=== PATIENT | male | born 1940 | race Caucasian/White ===

== ENCOUNTER → 2018-03-30 | Outpatient (CLI) | payer MEDICARE ==
[2018-03-30 16:15] LABS: CALCIUM 9.3 mg/dL (8.4-10.2); CREATININE, serum 0.95 mg/dL (0.66-1.25); POTASSIUM 4.5 mmol/L (3.4-5.0)
== END ==
LOC: COL.LAB 10:26
PROVIDERS: Family Medicine
DX: I50.42 Chronic combined systolic (congestive) and diastolic (congestive) heart failure (principal)

== ENCOUNTER → 2018-04-12 | Outpatient (CLI) | payer MEDICARE ==
[2018-04-12 15:41] LABS: CREATININE, serum 0.88 mg/dL (0.66-1.25)
== END ==
LOC: COL.LAB 14:32
PROVIDERS: Family Medicine
DX: I50.42 Chronic combined systolic (congestive) and diastolic (congestive) heart failure (principal)

== ENCOUNTER 2018-04-25 14:34 | Outpatient (RCR) | payer MEDICARE, OTHER | END 2018-04-26 | disposition home or self-care (01) | LOC: COL.CR | DX: Z48.812 Encounter for surgical aftercare following surgery on the circulatory system (principal); Z95.5 Presence of coronary angioplasty implant and graft; I25.10 Atherosclerotic heart disease of native coronary artery without angina pectoris; I25.83 Coronary atherosclerosis due to lipid rich plaque ==

== ENCOUNTER 2018-06-04 11:10 | Outpatient (RCR) | payer MEDICARE | END 2018-06-15 09:54 | disposition home or self-care (01) | LOC: COL.CR 11:10 | DX: Z48.812 Encounter for surgical aftercare following surgery on the circulatory system (principal); Z95.5 Presence of coronary angioplasty implant and graft; I25.10 Atherosclerotic heart disease of native coronary artery without angina pectoris; I25.83 Coronary atherosclerosis due to lipid rich plaque ==

== ENCOUNTER 2018-08-31 13:56 | Outpatient (RCR) | payer SELFPAY | END 2018-09-02 | disposition home or self-care (01) | LOC: COL.CR | DX: Z02.89 Encounter for other administrative examinations (principal) ==

== ENCOUNTER 2018-11-16 14:25 | Outpatient (RCR) | payer SELFPAY | END 2018-12-04 | disposition home or self-care (01) | LOC: COL.CR | DX: Z02.89 Encounter for other administrative examinations (principal) ==

== ENCOUNTER 2019-01-14 12:01 | Emergency (ER) | payer MEDICARE, MEDICAID ==
[~2019-01-14] VITALS: Ht 175.3 cm; Wt 81.8 kg
[2019-01-14 12:06] VITALS: TEMP 97.2
[2019-01-14] MEDS ORDERED: LIPITOR 40MG TA40 MG PO (12:28)
[2019-01-14] MEDS ORDERED: ENTRESTO 49 MG1 EACH PO (12:29)
[2019-01-14] MEDS ORDERED: TOPROL XL 50MG50 MG PO (12:29)
[2019-01-14 12:53] LABS: BASO % 0.5 % (0.0-2.0); EOS # 0.3 (0.0-0.7); EOS % 5.2 % (0-4.0); GRAN # 3.7 (1.4-6.5); GRAN % 60.3 % (42.2-75.2); HEMATOCRIT 46.3 % (42.0-52.0); HEMOGLOBIN 15.8 g/dl (13.5-18.0); LYMPH # 1.2 (1.2-3.4); LYMPH % 19.1 % (20.0-51.0); MEAN CELL VOLUME 89 fl (80.0-100.0); MEAN CORPUSCULAR HEMOGLOBIN 30 pg (27.0-31.0); MEAN CORPUSCULAR HGB CONC 34 g/dl (33.0-37.0); MEAN PLATELET VOLUME 10.9 fl (7.4-10.4); MONO # 0.9 (0.1-0.6); MONO % 14.4 % (1.7-9.3); PLATELET COUNT 148 K/mm3 (130-400); RED BLOOD COUNT 5.21 M/mm3 (4.20-5.60); REDCELL DISTRIBUTION WIDTH-CV 13.4 % (11.5-14.5)
[2019-01-14 13:00] LABS: CALCIUM 8.9 mg/dL (8.4-10.2); CREATININE, serum 0.98 (0.66-1.25); POTASSIUM 4.1 mmol/L (3.4-5.0); TOTAL PROTEIN 7.2 gm/dL (6.4-8.2)
[2019-01-14 13:11] LABS: TROPONIN-I 0.013 ng/mL (0.000-0.035)
[2019-01-14] MEDS ORDERED: ZITHROMAX 250M250 MG PO (13:54)
[2019-01-14] MEDS ORDERED: PROAIR HFA0.09 MG/AC IH (14:31)
[2019-01-14 14:40] VITALS: BP 161/97; PULSE 74
== END 2019-01-14 14:40 | disposition home or self-care (01) ==
LOC: COL.ER 12:01
PROVIDERS: Emergency Medicine
DX: J20.9 Acute bronchitis, unspecified (principal)

== ENCOUNTER 2019-04-26 14:30 | Outpatient (RCR) | payer MEDICARE, MEDICAID ==
[~2019-04-26 14:30] MED LIST: ENTRESTO 49 MG1 EACH PO; LIPITOR 40MG TA40 MG PO; PROAIR HFA0.09 MG/AC IH; TOPROL XL 50MG50 MG PO; ZITHROMAX 250M250 MG PO
== END 2019-07-25 | disposition home or self-care (01) ==
LOC: COL.CR
DX: Z02.89 Encounter for other administrative examinations (principal)

== ENCOUNTER 2022-06-14 14:20 | Emergency (ER) | payer MEDICARE ==
[~2022-06-14] VITALS: Ht 175.3 cm; Wt 81.8 kg
[2022-06-14 14:28] VITALS: TEMP 97.8
[2022-06-14 16:13] LABS: COLLECTION METHOD CATHETER
[2022-06-14 16:21] LABS: URINE APPEARANCE Clear (CLEAR/HAZY); URINE COLOR Yellow (YELLOW)
[2022-06-14 16:22] LABS: PH 5.5 (5.0-8.5); URINE BLOOD 3+ (NEGATIVE); URINE GLUCOSE Negative (NEGATIVE); URINE KETONE Negative (NEGATIVE); URINE NITRATE Negative (NEGATIVE); URINE PROTEIN(semi-quant) Negative (NEGATIVE); URINE UROBILINOGEN 0.2 E.U/dL (0.2-1.0)
[2022-06-14 16:23] VITALS: BP 167/98; PULSE 88
[2022-06-14 16:25] LABS: MUCOUS Present (NOT PRESENT); SQUAMOUS EPITHELIAL None Seen /hpf (0-10); URINE BACTERIA None Seen /hpf (NONE SEEN); URINE RBC >50 /hpf (0-2)
== END 2022-06-14 16:24 | disposition home or self-care (01) ==
LOC: COL.ER 14:20
PROVIDERS: Family Medicine
DX: R33.9 Retention of urine, unspecified (principal); Z28.310 Unvaccinated for COVID-19

== ENCOUNTER 2022-06-16 08:15 | Emergency (ER) | payer MEDICARE ==
[~2022-06-16] VITALS: Ht 175.3 cm; Wt 81.8 kg
[2022-06-16 09:09] LABS: COLLECTION METHOD CATHETER
[2022-06-16 09:17] LABS: MUCOUS Present (NOT PRESENT); SQUAMOUS EPITHELIAL 0-2 /hpf (0-10); URINE BACTERIA Rare /hpf (NONE SEEN); URINE RBC 20-50 /hpf (0-2)
[2022-06-16 09:18] LABS: PH 5.5 (5-8); URINE APPEARANCE Clear (CLEAR/HAZY); URINE BLOOD 3+ (NEGATIVE); URINE COLOR Yellow (YELLOW); URINE GLUCOSE Negative (NEGATIVE); URINE KETONE Negative (NEGATIVE); URINE NITRATE Negative (NEGATIVE); URINE PROTEIN(semi-quant) 1+ (NEGATIVE); URINE UROBILINOGEN 0.2 (NEGATIVE)
[2022-06-16] MEDS ORDERED: FLOMAX 0.40.4 MG/CAP PO (09:59)
[2022-06-16 10:26] VITALS: BP 167/101; PULSE 71; TEMP 97.8
== END 2022-06-16 10:26 | disposition home or self-care (01) ==
LOC: COL.ER 08:15
PROVIDERS: Emergency Medicine
DX: R33.9 Retention of urine, unspecified (principal); Z28.310 Unvaccinated for COVID-19

== ENCOUNTER 2022-10-17 10:30 | Outpatient (RCR) | payer MEDICARE ==
[~2022-10-17 10:30] MED LIST changes: +FLOMAX 0.40.4 MG/CAP PO
== END 2022-10-18 | disposition home or self-care (01) ==
LOC: WSPT
DX: R26.81 Unsteadiness on feet (principal)

== ENCOUNTER 2022-10-24 08:32 | Emergency (ER) | payer MEDICARE ==
[~2022-10-24] VITALS: Ht 175.3 cm; Wt 81.8 kg
[2022-10-24 08:41] VITALS: TEMP 97.7
[2022-10-24 09:51] VITALS: BP 179/105; PULSE 74
== END 2022-10-24 09:51 | disposition home or self-care (01) ==
LOC: COL.ER 08:32
DX: T83.098A Other mechanical complication of other urinary catheter, initial encounter (principal); Y73.8 Miscellaneous gastroenterology and urology devices associated with adverse incidents, not elsewhere classified; Z28.310 Unvaccinated for COVID-19

== ENCOUNTER 2022-12-14 00:12 | Emergency (ER) | payer MEDICARE, MEDICAID ==
[~2022-12-14] VITALS: Ht 175.3 cm; Wt 80.5 kg
[2022-12-14 00:15] VITALS: TEMP 98.5
[2022-12-14 00:57] LABS: COLLECTION METHOD IN
[2022-12-14 01:27] LABS: MUCOUS Present (NOT PRESENT); URINE BACTERIA Moderate /hpf (NONE SEEN); URINE RBC >50 /hpf (0-2)
[2022-12-14 01:28] LABS: PH 6.5 (5.0-8.5); URINE APPEARANCE Turbid (CLEAR/HAZY); URINE BLOOD 3+ (NEGATIVE); URINE COLOR Red (YELLOW); URINE GLUCOSE Negative (NEGATIVE); URINE KETONE Negative (NEGATIVE); URINE NITRATE Positive (NEGATIVE); URINE PROTEIN(semi-quant) 3+ (NEGATIVE)
[2022-12-14] MEDS ORDERED: CIPRO 500MG TA500 MG PO (01:53)
[2022-12-14 02:09] VITALS: BP 127/80; PULSE 77
== END 2022-12-14 02:09 | disposition home or self-care (01) ==
LOC: COL.ER 00:12
PROVIDERS: Emergency Medicine
DX: T83.038A Leakage of other urinary catheter, initial encounter (principal); N39.0 Urinary tract infection, site not specified; Z28.310 Unvaccinated for COVID-19

== ENCOUNTER 2023-01-14 09:22 | Emergency (ER) | payer MEDICARE, MEDICAID ==
[~2023-01-14] VITALS: Ht 175.3 cm; Wt 81.8 kg
[~2023-01-14 09:22] MED LIST changes: +CIPRO 500MG TA500 MG PO
[2023-01-14 10:27] LABS: COLLECTION METHOD IN
[2023-01-14 11:01] LABS: BUDDING YEAST Present (NOT PRESENT); MUCOUS Present (NOT PRESENT); SQUAMOUS EPITHELIAL 0-2 /hpf (0-10); URINE BACTERIA Rare /hpf (NONE SEEN); URINE RBC 20-50 /hpf (0-2)
[2023-01-14 11:02] LABS: URINE APPEARANCE Hazy (CLEAR/HAZY); URINE COLOR Yellow (YELLOW)
[2023-01-14 11:03] LABS: URINE BLOOD 2+ (NEGATIVE); URINE GLUCOSE Negative (NEGATIVE); URINE KETONE Negative (NEGATIVE); URINE NITRATE Negative (NEGATIVE); URINE PROTEIN(semi-quant) 1+ (NEGATIVE); URINE UROBILINOGEN 0.2 E.U/dL (0.2-1.0)
[2023-01-14] MEDS ORDERED: CEPHALEXIN500 M1 PO (11:06)
[2023-01-14 11:42] VITALS: BP 179/114; PULSE 70; TEMP 97.9
== END 2023-01-14 11:19 | disposition home or self-care (01) ==
LOC: COL.ER 09:22
PROVIDERS: Emergency Medicine
DX: T83.038A Leakage of other urinary catheter, initial encounter (principal); N39.0 Urinary tract infection, site not specified; Z28.310 Unvaccinated for COVID-19; Z79.82 Long term (current) use of aspirin

== ENCOUNTER 2023-06-29 16:50 | Emergency (ER) | payer MEDICARE, MEDICAID ==
[~2023-06-29] VITALS: Ht 175.3 cm; Wt 81.8 kg
[~2023-06-29 16:50] MED LIST changes: +AMOXICILLIN 8751 TAB PO; +ASPIRIN 32325 MG/TAB PO; +ASPIRIN E.C. 8181 MG PO; +BACTRIM DS 8001 TAB PO; +CEFTIN 250250 MG/TAB PO; +CEPHALEXIN500 M1 PO
[2023-06-29 17:00] VITALS: TEMP 98.3
[2023-06-29 19:44] LABS: BASO % 0.2 % (0.0-2.0); EOS # 0.3 K/mm3 (0.0-0.7); EOS % 2.3 % (0.0-4.0); GRAN # 8.6 K/mm3 (1.4-6.5); GRAN % 75.3 % (42.2-75.2); HEMOGLOBIN 15.8 g/dl (13.5-18.0); LYMPH # 1.2 K/mm3 (1.2-3.4); LYMPH % 10.2 % (20.0-51.0); MEAN CELL VOLUME 89 fl (80.0-100.0); MEAN CORPUSCULAR HEMOGLOBIN 31 pg (27-31); MEAN CORPUSCULAR HGB CONC 34 g/dl (33.0-37.0); MONO # 1.3 K/mm3 (0.1-0.6); MONO % 11.6 % (1.7-9.3); PLATELET COUNT 188 K/mm3 (130-400); RED BLOOD COUNT 5.16 M/mm3 (4.20-5.60); REDCELL DISTRIBUTION WIDTH-CV 13.2 % (11.5-14.5)
[2023-06-29 19:59] LABS: ALBUMIN 3.7 gm/dL (3.4-4.8); BILIRUBIN,TOTAL 1.4 mg/dL (0.2-1.2); CALCIUM 9.4 mg/dL (8.4-10.2); CREATININE, serum 1.44 mg/dL (0.72-1.25); POTASSIUM 4.4 mmol/L (3.5-4.5); TOTAL PROTEIN 7.1 gm/dL (6.2-8.1)
[2023-06-29 22:51] VITALS: BP 165/98; PULSE 88
== END 2023-06-29 22:51 | disposition home or self-care (01) ==
LOC: COL.ER 16:50
PROVIDERS: Emergency Medicine
DX: R07.89 Other chest pain (principal); I25.2 Old myocardial infarction; Z95.5 Presence of coronary angioplasty implant and graft; Z28.310 Unvaccinated for COVID-19
CPT/HCPCS: J7120

== ENCOUNTER 2023-09-24 16:58 | Emergency (ER) | payer MEDICARE ==
[~2023-09-24] VITALS: Ht 175.3 cm; Wt 81.8 kg
[~2023-09-24 16:58] MED LIST changes: +LASIX 40MG TABL40 MG PO; +LIPITOR 80MG80 MG PO; +ZETIA 10MG TAB10 MG PO
[2023-09-24 17:05] VITALS: TEMP 97.5
[2023-09-24] MEDS ORDERED: MOBIC 7.5MG7.5 MG PO (18:08)
[2023-09-24] MEDS ORDERED: FLEXERIL 1010 MG/TAB PO (18:08)
[2023-09-24 18:25] VITALS: BP 169/100; PULSE 87
== END 2023-09-24 18:25 | disposition home or self-care (01) ==
LOC: COL.ER 16:58
DX: M54.41 Lumbago with sciatica, right side (principal)
CPT/HCPCS: J1885